=== PATIENT | male | born 1990 | race Caucasian/White ===

== ENCOUNTER 2021-06-26 15:29 | Emergency (ER) | payer OTHER ==
[2021-06-26] MEDS ORDERED: EFFEXOR XR150 MG PO (17:29)
== END 2021-06-26 18:33 | disposition home or self-care (01) ==
LOC: FER 15:29
DX: R20.2 Paresthesia of skin (principal); H93.8X1 Other specified disorders of right ear; T43.215A Adverse effect of selective serotonin and norepinephrine reuptake inhibitors, initial encounter; F20.9 Schizophrenia, unspecified; F17.200 Nicotine dependence, unspecified, uncomplicated
CPT/HCPCS: 99281

== ENCOUNTER 2021-07-17 09:48 | Emergency (ER) | payer OTHER ==
[~2021-07-17 09:48] MED LIST: EFFEXOR XR150 MG PO
== END 2021-07-17 10:56 | disposition home or self-care (01) ==
LOC: FER 09:48
DX: Z71.1 Person with feared health complaint in whom no diagnosis is made (principal); F20.9 Schizophrenia, unspecified; F17.210 Nicotine dependence, cigarettes, uncomplicated
CPT/HCPCS: 99283

== ENCOUNTER 2021-09-23 14:58 | Emergency (ER) | payer OTHER ==
[2021-09-23] MEDS ORDERED: AUGMENTIN 875-1 EACH PO (16:19)
== END 2021-09-23 16:36 | disposition home or self-care (01) ==
LOC: FER 14:58
DX: S01.511A Laceration without foreign body of lip, initial encounter (principal); L08.9 Local infection of the skin and subcutaneous tissue, unspecified; F17.210 Nicotine dependence, cigarettes, uncomplicated; X58.XXXA Exposure to other specified factors, initial encounter
CPT/HCPCS: 99283